=== PATIENT | male | born 1980 | race Caucasian/White ===

== ENCOUNTER 2023-06-01 14:22 | Emergency (ER) | payer OTHER, SELFPAY ==
--- NOTE | ~2023-06-01 | XR_ITS ---
EXAM: XR hand RT min 3V DATE: 06/01/2023 15:00 HISTORY: injury, RT hand pain, 5th digit. laceration to 5th DIP joint . COMPARISON: None available. FINDINGS: Normal mineralization. No fracture or dislocation. No lytic or blastic lesion. Joint space s are maintained. No erosion or periosteal change. Soft tissues within normal limits. IMPRESSION: No acute osseous finding in the right hand. Reviewed, dictated and finalized at location K.
[2023-06-01 14:32] VITALS: BP 147/84; PULSE 62; RESP 16; TEMP 36.8; O2SAT 100
[2023-06-01] MEDS: TETANUS,DIPHTHERIA,AC PERTUSSIS ADULT (0.5 ML) BOOSTRIX IM (14:49)
--- NOTE | 2023-06-01 14:51 | ED.EXTPRO ---
HPI - Extremity Problem General Chief complaint: Skin/Abscess/Foreign Body Stated complaint: Laceration to Finger Time Seen by Provider: 06/01/23 15:25 Source: patient and RN notes reviewed Mode of arrival: ambulatory Limitations: no limitations History of Present Illness HPI Narrative: 43-year-old male presents with concern for injury to the 5th digit of the right hand. Reports yesterday he punched a TV causing a laceration to the digit and beneath the digit on the dorsal hand. MD Complaint: other (Injury) Related Data Home Medications Medication Instructions Recorded Confirmed No Home Medications 06/01/23 06/01/23 Allergies Allergy/AdvReac Type Severity Reaction Status Date / Time naproxen Allergy Unknown hives Verified 04/08/19 18:44 Review of Systems Review of Systems: CONSTITUTIONAL: Denies malaise, chills, sweats, or fever. SKIN: Reports laceration to the 5th digit of the right hand and on the dorsal aspect of the hand MUSCULOSKELETAL: Reports pain in the 5th digit of the right hand All systems reviewed & are unremarkable except as noted in HPI and below PMFSH Comments At time of signature, agree with nursing past medical, surgical, social and family history. There is no relevant family history pertinent to the presenting complaint Exam Narrative: GENERAL: Well-appearing, well-nourished, and in no acute distress. HEAD: Normocephalic, atraumatic. EYES: PERRLA, conjunctivae clear NECK: Supple. CHEST: Speaks in full sentences. No respiratory distress. HEART: Regular rate and rhythm. Normal and equal peripheral pulses. EXTREMITIES: Right hand and digits have grossly normal strength and sensation, grossly normal range of motion. No edema or ecchymosis. 5/5 strength with digit flexion and extension. Normal sensation with sensitivity to light touch and pain. No point tenderness. No skin tenting, no devitalized tissue or atrophy, no trophic changes, no obvious deformity, alignment normal, nearby joints and structures intact. Distal pulses palpable and equal bilaterally, skin warm, dry, pink. Capillary refill less than 3 seconds. SKIN: Warm, dry. 1 cm slightly curved linear laceration noted to the dorsal aspect of the 5th digit of the right hand over the MIP joint, slightly gaping. Scabbed wound noted to the dorsal aspect of the hand beneath the 5th digit NEURO: Alert and oriented x3. PSYCH: Normal mood and affect Course Course Emergency Course: Digit wound cleaned, Steri-Strips applied. Tetanus shot given Patient is aware of diagnosis, understands and agrees to treatment plan. Anticipatory guidance given. Patient agrees to follow-up as directed and is aware of reasons to seek care at the emergency department. Portions of this record may have been created with voice recognition software Level of Care: Express Care Visit Vital Signs Vital signs: Vital Signs Temperature 98.2 F 06/01/23 14:32 Pulse Rate 62 06/01/23 14:32 Respiratory Rate 16 06/01/23 14:32 Blood Pressure 147/84 H 06/01/23 14:32 Pulse Oximetry 100 06/01/23 14:32 Oxygen Delivery Room Air 06/01/23 14:32 Temperature 98.2 F 06/01/23 14:32 Pulse Rate 62 06/01/23 14:32 Respiratory Rate 16 06/01/23 14:32 Blood Pressure 147/84 H 06/01/23 14:32 Pulse Oximetry 100 06/01/23 14:32 Oxygen Delivery Room Air 06/01/23 14:32 Reviewed. MDM - Extremity (Nontraumatic) Imaging Data My impression: Images reviewed, interpreted by radiologist, agree, see report. Radiologist's impression: EXAM:? XR hand RT min 3V DATE: 06/01/2023 15:00 HISTORY: injury, RT hand pain, 5th digit. laceration to 5th DIP joint . COMPARISON:? None available. FINDINGS:? Normal mineralization. No fracture or dislocation. No lytic or blastic lesion. Joint spaces are maintained. No erosion or periosteal change. Soft tissues within normal limits. IMPRESSION: No acute osseous finding in the right hand. Critical Care T
== END 2023-06-01 16:02 | disposition home or self-care (01) ==
PROVIDERS: Emergency Provider Nurse Practitioner; PCP Family Medicine
DX: S61.216A Laceration without foreign body of right little finger without damage to nail, initial encounter (principal); W22.8XXA Striking against or struck by other objects, initial encounter; Z23 Encounter for immunization
CPT/HCPCS: 73130; 90471; 90715; 99203; G0463